=== PATIENT | male | born 1960 ===

== ENCOUNTER → 2020-11-26 | Outpatient (CLI) | payer OTHER ==
[~2020-11-26] MED LIST: CARB10OTL
== END ==
LOC: LAB 16:06 → LAB SHORT 16:06
DX: Z15.09 Genetic susceptibility to other malignant neoplasm (principal)
CPT/HCPCS: 88108

== ENCOUNTER → 2021-09-28 | Outpatient (CLI) | payer OTHER | END | disposition home or self-care (01) | LOC: LAB 09:15 → LAB SHORT 09:15 | DX: Z15.09 Genetic susceptibility to other malignant neoplasm (principal) | CPT/HCPCS: 88108 ==

== ENCOUNTER 2021-12-08 07:28 | Day surgery (SDC) | payer OTHER ==
[~2021-12-08] VITALS: Ht 172.7 cm; Wt 83.9 kg
[2021-12-08] MEDS ORDERED: CLEM1.34 (07:42)
[2021-12-08] MEDS ORDERED: HAIR, SKIN AND1 EAC1 (07:42)
== END 2021-12-08 09:55 | disposition home or self-care (01) ==
LOC: ORSCSDS 07:28
PROVIDERS: Internal Medicine Gastroenterology
PROC: 0DBK8ZX Excision of Ascending Colon, Via Natural or Artificial Opening Endoscopic, Diagnostic (ICD-10-PCS; principal; 2021-12-08 08:45)
DX: Z12.11 Encounter for screening for malignant neoplasm of colon (principal); Z86.010 Personal history of colon polyps; D12.2 Benign neoplasm of ascending colon; Z15.09 Genetic susceptibility to other malignant neoplasm; K64.4 Residual hemorrhoidal skin tags; K57.30 Diverticulosis of large intestine without perforation or abscess without bleeding
CPT/HCPCS: 88305; J2704; J7120

== ENCOUNTER → 2022-09-11 | Outpatient (CLI) | payer OTHER ==
[~2022-09-11] MED LIST changes: +CLEM1.34; +HAIR, SKIN AND1 EAC1
== END | disposition home or self-care (01) ==
LOC: PLD 07:55 → LAB SHORT 07:55
DX: L60.2 Onychogryphosis (principal); B35.1 Tinea unguium
CPT/HCPCS: 88305; 88312

== ENCOUNTER → 2022-10-23 | Outpatient (CLI) | payer OTHER ==
[2022-10-23 19:23] LABS: Source, Urine Clean Catch
[2022-10-23 21:05] LABS: Red Blood Cells, Urine 0-2 /hpf (0-2); Squamous Epithelial Cells Few /hpf (Few)
[2022-10-23 21:06] LABS: Bacteria Few /hpf
== END | disposition home or self-care (01) ==
LOC: LAB SHORT 14:00 → LAB 14:00
PROVIDERS: Family Medicine
DX: Z15.09 Genetic susceptibility to other malignant neoplasm (principal)
CPT/HCPCS: 81015; 88108

== ENCOUNTER → 2022-11-13 | Outpatient (CLI) | payer OTHER ==
[2022-11-13 11:43] LABS: Source, Urine Clean Catch
[2022-11-13 13:19] LABS: Bacteria Not Seen /hpf; Red Blood Cells, Urine 0-2 /hpf (0-2); White Blood Cells, Urine 0-2 /hpf (0-5)
[2022-11-13 13:20] LABS: Squamous Epithelial Cells Few /hpf (Few)
== END | disposition home or self-care (01) ==
LOC: LAB 09:45 → LAB SHORT 09:45
PROVIDERS: Family Medicine
DX: R82.81 Pyuria (principal)
CPT/HCPCS: 81015; 87086

== ENCOUNTER → 2023-08-17 | Outpatient (CLI) | payer OTHER | END | disposition home or self-care (01) | LOC: LAB SHORT 10:45 → LAB 10:45 | DX: Z15.09 Genetic susceptibility to other malignant neoplasm (principal) | CPT/HCPCS: 88108 ==

== ENCOUNTER 2023-11-30 10:29 | Day surgery (SDC) | payer OTHER ==
[~2023-11-30] VITALS: Ht 175.3 cm; Wt 85.2 kg
[2023-11-30 12:01] VITALS: BP 102/79
== END 2023-11-30 12:03 | disposition home or self-care (01) ==
LOC: ORSCSDS 10:29
PROVIDERS: Internal Medicine Gastroenterology
PROC: 0DB68ZX Excision of Stomach, Via Natural or Artificial Opening Endoscopic, Diagnostic (ICD-10-PCS; principal; 2023-11-30 11:45)
PROC: 0DBK8ZX Excision of Ascending Colon, Via Natural or Artificial Opening Endoscopic, Diagnostic (ICD-10-PCS; principal; 2023-11-30 11:45)
DX: Z15.09 Genetic susceptibility to other malignant neoplasm (principal); Z86.010 Personal history of colon polyps; K21.9 Gastro-esophageal reflux disease without esophagitis; K31.7 Polyp of stomach and duodenum; D12.2 Benign neoplasm of ascending colon; K57.30 Diverticulosis of large intestine without perforation or abscess without bleeding
CPT/HCPCS: 88305; J2704; J7120

== ENCOUNTER 2024-12-10 06:36 | Day surgery (SDC) | payer OTHER ==
[~2024-12-10] VITALS: Ht 165.1 cm; Wt 85.6 kg
[2024-12-10] MEDS ORDERED: ERGO400 (06:54)
[2024-12-10] MEDS ORDERED: propofoL 50 ML IV ONE (07:18)
[2024-12-10] MEDS ORDERED: Lactated Ringer's 1,000 ML IV ONE ×2 (07:18→07:47)
[2024-12-10 08:52] VITALS: BP 126/92
== END 2024-12-10 09:02 | disposition home or self-care (01) ==
LOC: ORSCSDS 06:36
PROVIDERS: Internal Medicine Gastroenterology
PROC: 0DBP8ZX Excision of Rectum, Via Natural or Artificial Opening Endoscopic, Diagnostic (ICD-10-PCS; principal; 2024-12-10 08:00)
DX: Z15.09 Genetic susceptibility to other malignant neoplasm (principal); Z86.0101 Personal history of adenomatous and serrated colon polyps; Z80.0 Family history of malignant neoplasm of digestive organs; K62.1 Rectal polyp; K57.30 Diverticulosis of large intestine without perforation or abscess without bleeding; K64.4 Residual hemorrhoidal skin tags
CPT/HCPCS: 88305; J2704; J7120